=== PATIENT | female | born 1970 | race Caucasian/White ===

== ENCOUNTER 2021-08-08 20:30 | Emergency (ER) | payer SELFPAY ==
[2021-08-08] MEDS ORDERED: Lorazepam 2 MG/ML VIAL ONE (21:21)
== END 2021-08-09 07:13 | disposition home or self-care (01) ==
LOC: ERS 20:30
DX: F41.9 Anxiety disorder, unspecified (principal)
CPT/HCPCS: 93005; 96372; J2060